=== PATIENT | male | born 1995 | race Caucasian/White ===

== ENCOUNTER 2017-02-10 23:01 | Emergency (ER) | payer OTHER ==
[~2017-02-10] VITALS: Ht 182.9 cm; Wt 84.5 kg
[2017-02-10 23:03] VITALS: TEMP 98.9
[2017-02-11 00:11] VITALS: BP 105/90; PULSE 67
== END 2017-02-11 00:12 | disposition home or self-care (01) ==
LOC: COL.ER 23:01
DX: R51 Headache (principal)
CPT/HCPCS: J1885